=== PATIENT | female | born 1950 | race American Indian/Alaskan Native ===

== ENCOUNTER 2018-07-03 22:53 | Emergency (ER) | payer SELFPAY ==
[2018-07-03 23:27] VITALS: BP 146/70
--- NOTE | 2018-07-03 23:47 | Emergency Department Report ---
ED Alcohol HPI - General Chief Complaint: Psych Stated Complaint: MH Time Seen by Provider: 07/03/18 23:25 Source: patient, EMS Mode of arrival: Ambulatory Limitations: No Limitations - History of Present Illness Initial Comments: Patient is 67-year-old female with no significant past medical history except for chronic back pain. Patient brought to the emergency room via EMS with alcohol intoxication. Patient is alert and oriented 3 in no acute distress. Patient stated that she just took 2 shots tonight. She denied any suicidal or homicidal ideation. No visual or auditory hallucination she denied any history of psychiatric problem for her. Patient stated that she fell just prior to EMS coming to her home and she denied any head injury or neck injury. MD Complaint: alcohol intoxication Last Drink: just [employer] Chronic Alcohol Use: Yes Associated Symptoms: denies other symptoms Treatments Prior to Arrival: none - Related Data Home Medications Medication Instructions Recorded Confirmed Last Taken No Known Home Medications [No 07/03/18 07/03/18 Unknown Reported Home Medications] Allergies Allergy/AdvReac Type Severity Reaction Status Date / Time No Known Allergies Allergy Verified 07/03/18 23:34 ED Review of Systems ROS: Stated complaint: MH Other details as noted in HPI Comment: All other systems reviewed and negative Constitutional: denies: chills, fever Respiratory: denies: cough, orthopnea, shortness of breath, SOB with exertion Cardiovascular: denies: chest pain Gastrointestinal: denies: abdominal pain, nausea, vomiting, diarrhea, constipation, hematemesis, melena, hematochezia Musculoskeletal: back pain Neurological: denies: headache, weakness, numbness, paresthesias, confusion, abnormal gait Psychiatric: denies: anxiety, depression, auditory hallucinations, visual hallucinations, homicidal thoughts, suicidal thoughts ED Past Medical Hx - Past Medical History Previous Medical History?: No Additional medical history: denies - Surgical History Past Surgical History?: No Additional Surgical History: denies - Social History Smoking Status: Never Smoker - Medications Home Medications: Home Medications Medication Instructions Recorded Confirmed Last Taken Type No Known Home Medications [No 07/03/18 07/03/18 Unknown History Reported Home Medications] ED Physical Exam - General Limitations: No Limitations General appearance: alert, in no apparent distress - Head Head exam: Present: atraumatic, normocephalic, normal inspection - ENT ENT exam: Present: normal exam, normal orophraynx, mucous membranes moist - Neck Neck exam: Present: normal inspection, full ROM. Absent: tenderness, meningismus, lymphadenopathy, thyromegaly - Respiratory Respiratory exam: Present: normal lung sounds bilaterally - Cardiovascular Cardiovascular Exam: Present: regular rate, normal rhythm, normal heart sounds - GI/Abdominal GI/Abdominal exam: Present: soft, normal bowel sounds. Absent: distended, ten derness, guarding, rebound, rigid, organomegaly, mass, bruit, pulsatile mass, hernia - Back Exam Back exam: Present: normal inspection, full ROM. Absent: CVA tenderness (R), CVA tenderness (L), muscle spasm, paraspinal tenderness, vertebral tenderness - Neurological Exam Neurological exam: Present: alert, oriented X3, CN II-XII intact, normal gait, reflexes normal - Psychiatric Psychiatric exam: Present: normal mood. Absent: depressed, agitated, anxious, flat affect, manic, homicidal ideation, suicidal ideation - Skin Skin exam: Present: warm, intact, normal color ED Course Vital Signs 07/03/18 23:25 Temperature 98.0 F Pulse Rate 96 H Blood Pressure 146/70 ED Medical Decision Making - Lab Data Result diagrams: 07/03/18 23:56 07/03/18 23:56 - Medical Decision Making Patient is 67-year-old female with no significant past medical history except for chronic back pain. Patient brought to the emergency room via EMS with alcohol intoxication. Patient is alert and oriented 3 in no acute distress. Patient stated that she just took 2 shots tonight. She denied any suicidal or homicidal ideation. No visual or auditory hallucination she denied any history of psychiatric problem for her. Patient stated that she fell just prior to EMS coming to her home and she denied any head injury or neck injury. Patient remained stable, no agitation. Alcohol level came back at 0.16. Patient's sister is in the room to take home and she signed out. Patient discharged in a stable condition. Critical care attestation.: If time is entered above; I have spent that time in minutes in the direct care of this critically ill patient, excluding procedure time. ED Disposition Clinical Impression: Alcohol intoxication Disposition: DC-01 TO HOME OR SELFCARE Is pt being admited?: No Condition: Stable Instructions: Alcohol Intoxication (ED) Referrals: MELISSA DUARTE MD [Primary Care Provider] - 3-5 Days
[2018-07-04 00:16] LABS: Bacteria,Urine 1+ /HPF (Negative); Bilirubin,Urine NEG (Negative); Blood,Urine SM (Negative); Color,Urine Straw (Yellow); Mucus,Urine FEW /HPF; Protein,Urine <15 mg/dL mg/dL (Negative); Urobilinogen,Urine < 2.0 mg/dL (<2.0)
[2018-07-04 00:21] LABS: Basophils % (Auto) 0.5 % (0.0-1.8); Eosinophils % (Auto) 0.3 % (0.0-4.3); Hematocrit 40.2 % (30.3-42.9); Hemoglobin 13.6 gm/dl (10.1-14.3); Lymphocytes # (Auto) 3.3 K/mm3 (1.2-5.4); Lymphocytes % (Auto) 39.4 % (13.4-35.0); Mean Corpuscular HGB Conc 34 % (30-34); Mean Corpuscular Volume 94 fl (79-97); Monocytes # (Auto) 0.5 K/mm3 (0.0-0.8); Monocytes % (Auto) 5.8 % (0.0-7.3); Platelet Count 252 K/mm3 (140-440); Red Blood Count 4.27 M/mm3 (3.65-5.03)
[2018-07-04 00:21] LABS: Amphetamine Screen,Urine PRESUMPTIVE NEGATIVE; Benzodiazepines Screen,Urine PRESUMPTIVE NEGATIVE; Cannabinoid Screen,Urine PRESUMPTIVE NEGATIVE; Cocaine Screen,Urine PRESUMPTIVE NEGATIVE; Methadone Screen,Urine PRESUMPTIVE NEGATIVE; Opiate Screen,Urine PRESUMPTIVE NEGATIVE
[2018-07-04 00:40] LABS: Calcium 9.7 mg/dL (8.4-10.2)
== END 2018-07-04 01:57 | disposition home or self-care (01) ==
LOC: ED 22:53
DX: F10.129 Alcohol abuse with intoxication, unspecified (principal)
CPT/HCPCS: 36415; 80048; 80307; 81001; 85025; 99283; G0480; 80320

== ENCOUNTER 2019-11-26 00:53 | Emergency (ER) | payer MEDICARE ==
[2019-11-26] MEDS ORDERED: SODIUM CHLORIDE 0.9% 1000 ML 1,000 ML IV ONE (01:08)
--- NOTE | 2019-11-26 01:45 | Emergency Department Report ---
HPI - General Chief Complaint: Alcohol Time Seen by Provider: 11/26/19 01:07 - HPI HPI: This is a 69-year-old female presents to the emergency department via EMS with possible alcohol intoxication. The patient was at a [employer] this evening and admits to drinking alcohol, but denies being intoxicated. Apparently the patient went outside for a short while and when she came back inside to the democrat she slumped down in a chair and appeared unresponsive. Upon arrival to the emergency department, the patient is awake and oriented but does appear intoxicated. The patient says that she has a history of hypertension among other past medical conditions for which she takes "7 pills a day." Patient has been to this facility 1 time previously, last year, for alcohol intoxication. ED Past Medical Hx - Past Medical History Additional medical history: denies - Surgical History Additional Surgical History: denies - Social History Smoking Status: Unknown if ever smoked Substance Use Type: Alcohol, Marijuana - Medications Home Medications: Home Medications Medication Instructions Recorded Confirmed Last Taken Type No Known Home Medications [No 07/03/18 07/03/18 Unknown History Reported Home Medications] ED Review of Systems ROS: Stated complaint: ETOH Other details as noted in HPI Comment: All other systems reviewed and negative Constitutional: denies: chills, fever Respiratory: denies: cough, shortness of breath Cardiovascular: denies: chest pain, palpitations Gastrointestinal: denies: abdominal pain, vomiting Musculoskeletal: denies: joint swelling, arthralgia Neurological: denies: headache, weakness Physical Exam - Physical Exam Vital Signs: Vital Signs 11/26/19 01:00 Temperature 98.1 F Pulse Rate 88 Respiratory 18 Rate Blood Pressure 135/87 [Left] O2 Sat by Pulse 98 Oximetry Physical Exam: GENERAL: The patient is well-developed well-nourished. HENT: Normocephalic. Atraumatic. Patient has moist mucous membranes. EYES: Extraocular motions are intact. NECK: Supple. Trachea is midline. CHEST/LUNGS: Clear to auscultation. There is no respiratory distress noted. HEART/CARDIOVASCULAR: Regular. There is no tachycardia. There is no murmur. ABDOMEN: Abdomen is soft, nontender. Patient has normal bowel sounds. There is no abdominal distention. SKIN: Skin is warm and dry. NEURO: The patient is awake, alert, and oriented but appears intoxicated. The patient has no focal neurologic deficits. MUSCULOSKELETAL: There is no tenderness or deformity. There is no limitation range of motion. ED Course Vital Signs 11/26/19 01:00 Temperature 98.1 F Pulse Rate 88 Respiratory 18 Rate Blood Pressure 135/87 [Left] O2 Sat by Pulse 98 Oximetry ED Medical Decision Making - EKG Data -: EKG Interpreted by Me EKG shows normal: sinus rhythm, axis, intervals, QRS complexes, ST-T waves Rate: normal - EKG Data When compared to previous EKG there are: previous EKG unavailable Interpretation: normal EKG - Medical Decision Making This patient presented to the emergency department via EMS from a democr[employer] where the patient was drinking alcohol and apparently she had a syncopal episode. Since being in the emergency department, the patient has been awake, oriented, AAOx3 but does appear intoxicated. Patient is uncooperative, sometimes yelling at ER staff. After little while the patient was amenable to getting in the gurney in bed #23 and did allow us to do an EKG. The EKG is normal sinus rhythm without any morphology consistent with ST elevation [place], ischemia or dysrhythmia. The patient would not allow for blood work to be drawn. The patient's son came into the emergency department and into the patient's room. The son feels that the patient is intoxicated as well. At first, when the patient's son arrived, the patient says that she was amenable to having her blood drawn. However, when the ict support engineer approached, she once again has refused any further evaluation or care. The patient has been seen ambulatory in the emergency department and does appear stable walking. Patient's son is going to drive the patient home and take responsibility for her. The patient's condition appears most consistent with alcohol intoxication. However she denies drinking enough to be intoxicated. I am unable to get any blood work done and therefore I am unable to differentiate between any alcohol intoxication or other reasons for a syncopal episode. The patient and her son understand this and have signed out AGAINST MEDICAL ADVICE. Critical Care Time: No Critical care attestation.: If time is entered above; I have spent that time in minutes in the direct care of this critically ill patient, excluding procedure time. ED Disposition Clinical Impression: Syncope Qualifiers: Syncope type: unspecified Qualified Code(s): R55 - Syncope and collapse Disposition: DC-07 LEFT AGAINST MED ADVICE Is pt being admited?: No Condition: Stable Instructions: Syncope (ED) Additional Instructions: Please follow-up with a primary care physician in the next few days. Return to the emergency department if you change your mind about evaluation of your episode of passing out, have any further episodes of passing out, or with any acute distress. Referrals: PCP, Your [Other] - GLORIA Forms: AMA Form Time of Disposition: 02:17
[2019-11-26 02:44] VITALS: BP 142/85
== END 2019-11-26 02:30 | disposition left against medical advice (07) ==
LOC: ED 00:53
DX: R55 Syncope and collapse (principal); F12.10 Cannabis abuse, uncomplicated
CPT/HCPCS: 93005